=== PATIENT | male | born 1975 | race Caucasian/White ===

== ENCOUNTER 2016-08-05 10:55 | Inpatient (IN) | payer MEDICARE, MEDICAID ==
[~2016-08-05] VITALS: Ht 177.8 cm; Wt 92.1 kg
[2016-08-05 11:11] LABS: BASOPHILS % (AUTO) 0.7 % (0.0-2.0); EOSINOPHILS % (AUTO) 0.5 % (1.0-6.0); HEMATOCRIT 47.4 % (41-53); HEMOGLOBIN 15.2 g/dL (13.5-17.5); LYMPHOCYTES # (AUTO) 1.2 K/uL (1.0-4.8); LYMPHOCYTES % (AUTO) 14.6 % (22.0-44.0); MEAN CORPUSCULAR HGB CONC 32.2 G/dL (31.0-37.0); MEAN CORPUSCULAR VOLUME 90 fL (80-100); MONOCYTES # (AUTO) 0.5 K/uL (0.1-1.0); MONOCYTES % (AUTO) 5.7 % (2.0-9.0); NEUTROPHILS # (AUTO) 6.3 K/uL (1.8-7.7); NEUTROPHILS % (AUTO) 78.5 % (40.0-70.0); PLATELET COUNT (AUTO) 373 K/uL (150-450); RED BLOOD CELL COUNT(AUTO) 5.26 MIL/uL (4.50-5.90); RED CELL DISTRIBUTION WIDTH 13.4 % (11.5-14.5)
[2016-08-05 11:20] LABS: ANION GAP 9 mmol/L (8-16); CALCIUM, TOTAL 8.8 mg/dL (8.8-10.5); CARBON DIOXIDE 25 mmol/L (22-29); CHLORIDE 104 mmol/L (98-107); CREATININE 0.95 mg/dL (0.60-1.30); GLOMERULAR FILTR. RATE CALC > 60 mL/min (>60); POTASSIUM 3.7 mmol/L (3.5-5.1); SODIUM SERUM 138 mmol/L (136-145); UREA NITROGEN, BLOOD 13 mg/dL (7-18)
[2016-08-05 11:26] LABS: ALANINE AMINOTRANSFERASE 29 U/L (12-78); ALBUMIN 4.3 g/dL (3.4-5.0); ASPARTATE AMINOTRANSFERASE 19 U/L (15-37); BILIRUBIN,TOTAL 0.5 mg/dL (0.1-1.0); TOTAL PROTEIN, SERUM 7.5 g/dL (6.4-8.2)
[2016-08-05] MEDS ORDERED: RisperiDONE 1 MG TABLET PO ONE (12:45)
[2016-08-05] MEDS ORDERED: LORazepam 2 MG TABLET PO ONE (12:45)
[2016-08-05] MEDS ORDERED: HALOPERIDOL 5 MG TABLET PO PRN (13:30)
[2016-08-05] MEDS ORDERED: ZOLPIDEM TARTRATE 10 MG TABLET PO PRN (13:30)
[2016-08-05] MEDS ORDERED: LORazepam 2 MG TABLET PO PRN (13:30)
[2016-08-05 14:16] LABS: CHOL/HDL RATIO 3.2 (4.2-7.3)
[2016-08-05 17:03] VITALS: BP 110/77
[2016-08-05] MEDS ORDERED: IBUPROFEN 400 MG TABLET PO PRN (19:30)
[2016-08-05] MEDS ORDERED: ACETAMINOPHEN 325 MG TABLET PO PRN (19:30)
[2016-08-05] MEDS: RisperiDONE 4 MG TABLET PO SCH (20:48)
[2016-08-05 22:05] LABS: APPEARANCE,URINE CLEAR (CLEAR); GLUCOSE, URINE (UA) NEGATIVE (NEGATIVE); KETONES,URINE NEGATIVE (NEGATIVE); LEUKOCYTE ESTERASE ,URINE NEGATIVE (NEGATIVE); OCCULT BLOOD,URINE NEGATIVE (NEGATIVE); PROTEIN,URINE NEGATIVE (NEGATIVE)
[2016-08-05 22:06] LABS: ADD UA MICROSCOPIC NO
[2016-08-06 06:46] LABS: CHOL/HDL RATIO 3.7 (4.2-7.3); THYROID STIMULATING HORMONE 3.22 uIU/mL (0.36-3.74)
[2016-08-06 06:53] LABS: HEMOGLOBIN A1C 5.6 % (4.5-6.2)
[2016-08-06 08:10] VITALS: BP 138/72
[2016-08-06 16:37] VITALS: BP 118/73
[2016-08-06] MEDS: RisperiDONE 4 MG TABLET PO SCH (21:16)
[2016-08-07 08:00] VITALS: BP 140/78
[2016-08-07 19:26] VITALS: BP 128/86
[2016-08-07] MEDS: RisperiDONE 4 MG TABLET PO SCH (20:27)
[2016-08-08 05:13] VITALS: BP 130/76
[2016-08-08 08:00] VITALS: BP 125/72
[2016-08-08 17:08] VITALS: BP 133/72
[2016-08-08] MEDS: RisperiDONE 2 MG TABLET PO SCH (20:35)
[2016-08-09 08:10] VITALS: BP 111/74
[2016-08-09 19:49] VITALS: BP 110/80
[2016-08-09] MEDS: RisperiDONE 2 MG TABLET PO SCH (20:26)
[2016-08-10 04:32] VITALS: BP 103/53
[2016-08-10 08:09] VITALS: BP 128/78
[2016-08-10 18:19] VITALS: BP 120/83
[2016-08-10] MEDS: RisperiDONE 2 MG TABLET PO SCH (20:07)
[2016-08-11 08:16] VITALS: BP 127/76
[2016-08-11 19:12] VITALS: BP 116/72
[2016-08-11] MEDS: RisperiDONE 2 MG TABLET PO SCH (20:14)
[2016-08-12 06:41] VITALS: BP 133/95
[2016-08-12 10:39] VITALS: BP 135/95
[2016-08-12 16:26] VITALS: BP 120/88
[2016-08-12] MEDS: RisperiDONE 2 MG TABLET PO SCH (20:19)
[2016-08-13 06:48] VITALS: BP 124/77
[2016-08-13 10:01] VITALS: BP 157/99
[2016-08-13] MEDS ORDERED: RISP2 PO (13:19)
== END 2016-08-13 16:15 | disposition home or self-care (01) | DRG 885 ==
LOC: EEVIPCON 11:01 → EMS 11:01 → 3EX 14:57
DX: F20.0 Paranoid schizophrenia (principal); R00.0 Tachycardia, unspecified
CPT/HCPCS: 83036; 84443; 99285; G0480

== ENCOUNTER 2024-03-02 16:59 | Emergency (ER) | payer MEDICARE, OTHER ==
[~2024-03-02] VITALS: Ht 180.3 cm; Wt 81.0 kg
[~2024-03-02 16:59] MED LIST: RISP2TAB45 PO
[2024-03-02 17:11] VITALS: TEMP 98.3
[2024-03-02 18:23] LABS: BASOPHILS % (AUTO) 0.6 % (0.0-2.0); EOSINOPHILS % (AUTO) 0.8 % (1.0-6.0); HEMATOCRIT 49.8 % (41-53); HEMOGLOBIN 16.8 g/dL (13.5-17.5); LYMPHOCYTES # (AUTO) 0.8 K/uL (1.0-4.8); LYMPHOCYTES % (AUTO) 10.3 % (22.0-44.0); MEAN CORPUSCULAR HEMOGLOBIN 31.5 pg (26.0-34.0); MEAN CORPUSCULAR HGB CONC 33.7 G/dL (31.0-37.0); MEAN CORPUSCULAR VOLUME 94 fL (80-100); MONOCYTES # (AUTO) 0.9 K/uL (0.1-1.0); NEUTROPHILS # (AUTO) 6.3 K/uL (1.8-7.7); NEUTROPHILS % (AUTO) 77.3 % (40.0-70.0); PLATELET COUNT (AUTO) 312 K/uL (150-450); RED BLOOD CELL COUNT(AUTO) 5.32 MIL/uL (4.50-5.90); RED CELL DISTRIBUTION WIDTH 13.5 % (11.5-14.5); WHITE BLOOD COUNT (AUTO) 8.2 K/uL (4.5-11.0)
[2024-03-02 18:24] LABS: ANION GAP 11 mmol/L (8-16); CALCIUM, TOTAL 9.3 mg/dL (8.8-10.5); CARBON DIOXIDE 28 mmol/L (22-29); CHLORIDE 99 mmol/L (98-107); GLOMERULAR FILTR. RATE CALC > 60 mL/min (>60); GLUCOSE,RANDOM 78 mg/dL (70-110); POTASSIUM 3.2 mmol/L (3.5-5.1); SODIUM SERUM 138 mmol/L (136-145); UREA NITROGEN, BLOOD 17 mg/dL (7-18)
[2024-03-02 18:44] LABS: ALCOHOL, BLOOD (SERUM) < 3 mg/dL (0-10)
[2024-03-02 20:41] VITALS: BP 118/79; PULSE 95; RESP 16; O2SAT 97
[2024-03-02] MEDS: POTASSIUM CHLORIDE 20 MEQ ER TABLET PO ONE (20:41)
== END 2024-03-02 22:23 | disposition home or self-care (01) ==
LOC: EMS 16:59
DX: E87.6 Hypokalemia (principal); R25.1 Tremor, unspecified; F20.9 Schizophrenia, unspecified
CPT/HCPCS: 99283; 80048; 85025; 36415; G0480